=== PATIENT | male | born 1990 | race African-American/Black ===

== ENCOUNTER 2018-03-05 21:54 | Observation (INO) | payer SELFPAY ==
[2018-03-05] MEDS ORDERED: NA CHLORIDE 0.9% 1,000 ML ONE (22:52)
[2018-03-05] MEDS ORDERED: IBUPROFEN 400 MG TAB ONE (22:52)
[2018-03-05 22:59] LABS: Absolute Lymphocytes (CBC) 2.1 K/uL (0.7-4.9); Absolute Monocytes 1.4 K/uL (0.1-1.3); Absolute Neutrophil 28.3 K/uL (1.8-8.0); Basophils % 0.7 % (0-1.3); Hematocrit 42.8 % (39.6-49.0); Lymphocytes % 6.5 % (15.3-44.8); MCH 29.2 pg (27.0-35.0); MCV 88.7 fL (80-100); MPV 10.6 fL (7.6-11.3); Monocytes % 4.5 % (3.3-12.3); RBC Red Blood Cell Count 4.83 M/uL (4.33-5.43)
[2018-03-05 23:09] LABS: Bicarbonate 26 mEq/L (21-31); Glucose Level 126 mg/dL (65-120); Lipase 14 U/L (22-51); Potassium 3.3 mEq/L (3.6-5.0); Sodium Level 132 mEq/L (135-145)
[2018-03-05 23:16] LABS: ALT/SGPT 112 IU/L (10-60); AST/SGOT 51 IU/L (10-42); Albumin 4.3 g/dL (3.2-5.5); Alkaline Phosphatase 54 IU/L (42-121); Amylase Level 44 U/L (28-100); BUN Blood Urea Nitrogen 15 mg/dL (6-20); Bilirubin Direct 0.2 mg/dL (0-0.2); Bilirubin Total 1.4 mg/dL (0.3-1.2); Protein, Total 7.6 g/dL (6.0-8.3)
[2018-03-06] LABS: Urine Bacteria <20 /HPF (NONE SEEN); Urine Culture Reflex Order REFLEXED; Urine RBC <5 /HPF (NONE SEEN)
[2018-03-06 00:51] LABS: Blood Morphology Comment NOT SEEN (NOT SEEN); Platelet Estimate ADEQ
[2018-03-06] MEDS ORDERED: CEFTRIAXONE/SWI 1gm 1 GM/10 ML SYR ONE (02:32)
--- NOTE | 2018-03-06 02:50 | EDPHYS ---
Physician Documentation [facility] Name: Alex Ames Age: 27 yrs Sex: Male : 1990 Arrival Date: 03/05/2018 Time: 21:55 Bed 24 Private MD: ED Physician Francesco Galindo HPI: 03/05 22:25 This 27 yrs old Black Male presents to ER via Ambulatory with complaints of Urinary cp Problem - Blood. 22:25 The patient presents with urinary symptoms, urinary frequency, hematuria. cp 22:25 Onset: The symptoms/episode began/occurred yesterday. Associated signs and symptoms: cp Pertinent positives: fever, Pertinent negatives: constipation, diarrhea, vomiting. Severity of symptoms: in the emergency department the symptoms are unchanged. Historical: - Allergies: 22:17 No Known Allergies; bb - Home Meds: 22:17 None [Active]; bb - PMHx: 22:17 None; bb - PSHx: 22:17 None; bb - Immunization history:: Adult Immunizations unknown. - Social history:: Smoking status: Patient/guardian denies using tobacco, Patient uses alcohol, occasionally. Patient/guardian denies using street drugs. ROS: 22:30 Constitutional: Positive for fever, Negative for poor PO intake. cp 22:30 Eyes: Negative for injury, pain, redness, and discharge. cp 22:30 ENT: Negative for drainage from ear(s), ear pain, sore throat, difficulty swallowing, difficulty handling secretions. 22:30 Cardiovascular: Negative for chest pain, edema, palpitations. 22:30 Respiratory: Negative for cough, shortness of breath, wheezing. 22:30 Abdomen/GI: Positive for abdominal pain, of the suprapubic area, Negative for vomiting, diarrhea, constipation, black/tarry stool, rectal bleeding. 22:30 Back: Negative for pain at rest, pain with movement, radiated pain. 22:30 : Positive for urinary frequency, hematuria, Negative for flank pain, penile pain, testicular pain 22:30 Skin: Negative for cellulitis, rash. 22:30 Neuro: Negative for altered mental status, dizziness, headache, weakness. 22:30 All other systems are negative. Exam: 22:35 Constitutional: The patient appears in no acute distress, alert, awake, non-toxic, well cp developed, well nourished, febrile. 22:35 Head/Face: Normocephalic, atraumatic. Eyes: Pupils equal round and reactive to light, cp extra-ocular motions intact. Lids and lashes normal. Conjunctiva and sclera are non-icteric and not injected. Cornea within normal limits. Periorbital areas with no swelling, redness, or edema. ENT: Nares patent. No nasal discharge, no septal abnormalities noted. Tympanic membranes are normal and external auditory canals are clear. Oropharynx with no redness, swelling, or masses, exudates, or evidence of obstruction, uvula midline. Mucous membranes moist. Neck: Trachea midline, no thyromegaly or masses palpated, and no cervical lymphadenopathy. Supple, full range of motion without nuchal rigidity, or vertebral point tenderness. No Meningismus. Chest/axilla: Normal chest wall appearance and motion. Nontender with no deformity. No lesions are appreciated. 22:35 Cardiovascular: Rate: normal, Rhythm: regular, Pulses: Pulses are 2+ in right radial artery and left radial artery. Heart sounds: murmur, not appreciated, rub, not appreciated, gallop, not appreciated. 22:35 Respiratory: the patient does not display signs of respiratory distress, Respirations: normal, no use of accessory muscles, no retractions, no splinting, no tachypnea, labored breathing, is not present, Breath sounds: are clear throughout, no decreased breath sounds, no stridor, no wheezing. 22:35 Abdomen/GI: Inspection: abdomen appears normal, Bowel sounds: active, all quadrants, Palpation: soft, in all quadrants, mild abdominal tenderness, in the suprapubic area, right lower quadrant and left lower quadrant, rebound tenderness, is not appreciated, voluntary guarding, is not appreciated, involuntary guarding, is not appreciated. 22:35 Back: pain, is absent, ROM is normal, CVA tenderness, is absent. 22:35 Skin: cellulitis, is not appreciated, no rash present. 22:35 Neuro: Orientation: to person, place \T\ time. Mentation: is normal, Cerebellar function: is grossly normal, Motor: moves all fours, strength is normal, Sensation: no obvious gross deficits. Vital Signs: 22:17 BP 121 / 74; Pulse 97; Resp 18 S; Temp 102.6(O); Pulse Ox 98% on R/A; Weight 104.33 kg bb (R); Height 5 ft. 9 in. (175.26 cm) (R); Pain 0/10; 22:30 BP 110 / 73; Pulse 94; Resp 18; Pulse Ox 98% ; tl3 23:17 BP 119 / 63; Pulse 83; Resp 16; Pulse Ox 100% on R/A; tl3 03/06 00:06 BP 116 / 70; Pulse 86; Resp 18; Pulse Ox 100% ; tl3 00:40 BP 112 / 72; Pulse 80; Resp 16; Pulse Ox 100% ; tl3 00:56 BP 112 / 61; Pulse 90; Resp 18; Temp 98.8(O); Pulse Ox 98% on R/A; kb1 02:01 BP 110 / 71; Pulse 86; Resp 18; Pulse Ox 100% ; kb1 03:02 BP 111 / 63; Pulse 82; Resp 18; Pulse Ox 99% on R/A; kb1 03:51 BP 107 / 69; Pulse 89; Resp 18 S; Temp 98(O); Pulse Ox 100% on R/A; Pain 0/10; bb 03/05 22:17 Body Mass Index 33.96 (104.33 kg, 175.26 cm) bb MDM: 03/05 22:12 Patient medically screened. cp 03/06 02:25 Data reviewed: vital signs, nurses notes, lab test result(s), radiologic studies, CT cp scan, and as a result, I will admit patient. 03/05 22:23 Order name: Amylase, Serum; Complete Time: 23:20 cp 03/05 22:23 Order name: Basic Metabolic Panel; Complete Time: 23:20 cp 03/05 23:20 Interpretation: Normal except: NA 132; K 3.3; CL 99; GLUC 126. cp 03/05 22:23 Order name: CBC with Diff; Complete Time: 01:09 cp 03/06 01:33 Interpretation: Normal except: WBC 32.1; ROSI% 88.3; LYM% 6.5; MNA 1.4; NEUT A 28.3. cp 03/05 22:23 Order name: Creatinine for Radiology; Complete Time: 23:20 cp 03/05 22:23 Order name: Hepatic Function; Complete Time: 23:20 cp 03/05 23:21 Interpretation: Normal except: SGOT 51; SGPT 112; BILIT 1.4. cp 03/05 22:23 Order name: Lipase; Complete Time: 23:20 cp 03/05 23:22 Interpretation: LIP 14; Reviewed. cp 03/05 22:23 Order name: Urine Microscopic Only; Complete Time: 00:26 cp 03/06 00:27 Interpretation: Normal except: UWBC >50. cp 03/05 22:25 Order name: Influenza Screen (a \T\ B); Complete Time: 23:49 cp 03/05 23:49 Interpretation: Reviewed. cp 03/05 23:50 Order name: Manual Differential; Complete Time: 01:09 EDMS 03/06 01:09 Interpretation: Normal except: BANDS [F] 7; LYM 10. cp 03/06 00:02 Order name: Urine Culture EDMS 03/06 03:23 Order name: Comprehensive Metabolic Panel EDMS 03/06 03:23 Order name: Comprehensive Metabolic Panel EDMS 03/06 03:23 Order name: CBC with Automated Diff EDMS 03/06 03:23 Order name: CBC with Automated Diff EDMS 03/05 22:23 Order name: IV Saline Lock; Complete Time: 22:51 cp 03/05 22:23 Order name: Labs collected and sent; Complete Time: 22:51 cp 03/05 22:23 Order name: Urine Dipstick-Ancillary (obtain specimen); Complete Time: 22:51 cp 03/06 00:01 Order name: CT Abd/Pelvis - W/Contrast cp 03/06 03:23 Order name: Clear Liquid; Complete Time: 16:44 EDMS 03/06 03:23 Order name: CONS Pharmacy Consult; Complete Time: 16:44 EDMS 03/06 03:23 Order name: CBC with Automated Diff EDMS 03/06 03:23 Order name: Comprehensive Metabolic Panel EDMS Administered Medications: 03/05 22:58 Drug: NS 0.9% 1000 ml Route: IV; Rate: 1 bolus; Site: right antecubital; Delivery: tl3 Primary tubing; 03/06 00:07 Follow up: IV Status: Completed infusion; IV Intake: 1000ml tl3 03/05 22:58 Drug: Ibuprofen 800 mg Route: PO; tl3 03/06 00:07 Follow up: Response: No adverse reaction; Temperature is decreased tl3 02:38 Drug: Rocephin - (cefTRIAXone) 1 grams Route: IVPB; Infused Over: 30 mins; Site: right kb1 antecubital; 03:03 Follow up: IV Status: Completed infusion kb1 Disposition: 06:09 Co-signature as Attending Physician, Francesco Galindo MD I agree with the assessment and tw4 plan of care. Disposition: 03/06/18 02:50 Hospitalization ordered by Jonah Escamilla for Observation. Preliminary diagnosis are Urinary tract infection, site not specified, Bandemia. - Bed requested for Telemetry/MedSurg (observation). - Status is Observation. bb - Condition is Stable. - Problem is new. - Symptoms have improved. UTI on Admission? Yes Signatures: Dispatcher [employer] EDMS Roro De La Vega RN RN Eros Blackwell PA PA cp Haley Gaffney, RN Francesco Ruggiero MD MD tw4 Francine Low RN RN kb1 Varsha Kovacs RN RN tl3 Corrections: (The following items were deleted from the chart) 01:33 01:09 Normal except: WBC 32.1; ROSI% 88.3; LYM% 6.5. cp cp
--- NOTE | 2018-03-06 02:50 | ER ---
Nurse's Notes [facility] Name: Alex Ames Age: 27 yrs Sex: Male : 1990 Arrival Date: 03/05/2018 Time: 21:55 Bed 24 Private MD: Diagnosis: Urinary tract infection, site not specified;Bandemia Presentation: 03/05 22:15 Presenting complaint: Patient states: he had blood in his urine since last night, bb fever, chills, and urine has a foul order. Transition of care: patient was not received from another setting of care. Onset of symptoms was March 04, 2018. Care prior to arrival: Medication(s) given: Tylenol, 650 mg. 22:15 Method Of Arrival: Ambulatory bb 22:15 Acuity: YUNG 3 bb Historical: - Allergies: 22:17 No Known Allergies; bb - Home Meds: 22:17 None [Active]; bb - PMHx: 22:17 None; bb - PSHx: 22:17 None; bb - Immunization history:: Adult Immunizations unknown. - Social history:: Smoking status: Patient/guardian denies using tobacco, Patient uses alcohol, occasionally. Patient/guardian denies using street drugs. Screenin:30 Abuse screen: Denies threats or abuse. Nutritional screening: No deficits noted. tl3 Tuberculosis screening: No symptoms or risk factors identified. Fall Risk None identified. Assessment: 22:30 General: Appears in no apparent distress. well groomed, well developed, well nourished, tl3 Behavior is calm, cooperative, appropriate for age. Pain: Denies pain. Neuro: Level of Consciousness is awake, alert, obeys commands, Oriented to person, place, time, situation, Appropriate for age. Cardiovascular: Heart tones S1 S2 present Capillary refill < 3 seconds in bilateral fingers. Respiratory: Airway is patent Trachea midline Respiratory effort is even, unlabored, Respiratory pattern is regular, symmetrical, Breath sounds are clear bilaterally. GI: Abdomen is round. : Urine is blood tinged, Reports urgency, since yesterday blood in urine. EENT: No signs and/or symptoms were reported regarding the EENT system. Derm: No signs and/or symptoms reported regarding the dermatologic system. Musculoskeletal: No signs and/or symptoms reported regarding the musculoskeletal system. 23:17 Reassessment: Patient appears in no apparent distress at this time. No changes from tl3 previously documented assessment. Patient and/or family updated on plan of care and expected duration. Pain level reassessed. Patient is alert, oriented x 3, equal unlabored respirations, skin warm/dry/pink. 03/06 00:06 Reassessment: Patient appears in no apparent distress at this time. No changes from tl3 previously documented assessment. Patient and/or family updated on plan of care and expected duration. Pain level reassessed. Patient is alert, oriented x 3, equal unlabored respirations, skin warm/dry/pink. waiting to go to CT. 00:21 Reassessment: CT called to make aware that pt has finished contrast. tl3 00:40 Reassessment: Patient appears in no apparent distress at this time. No changes from tl3 previously documented assessment. Patient and/or family updated on plan of care and expected duration. Pain level reassessed. Patient is alert, oriented x 3, equal unlabored respirations, skin warm/dry/pink. 00:55 Reassessment: Patient appears in no apparent distress at this time. Patient and/or kb1 family updated on plan of care and expected duration. Pain level reassessed. Patient is alert, oriented x 3, equal unlabored respirations, skin warm/dry/pink. General: Appears in no apparent distress. Behavior is calm, cooperative. Pain: Denies pain. Cardiovascular: Patient's skin is warm and dry. Respiratory: Airway is patent. GI: Abdomen is round. : Reports blood in urine. 02:01 Reassessment: Patient appears in no apparent distress at this time. Patient and/or kb1 family updated on plan of care and expected duration. Pain level reassessed. Patient is alert, oriented x 3, equal unlabored respirations, skin warm/dry/pink. 03:01 Reassessment: Patient appears in no apparent distress at this time. Patient and/or kb1 family updated on plan of care and expected duration. Pain level reassessed. Patient is alert, oriented x 3, equal unlabored respirations, skin warm/dry/pink. Resting comfortably, no needs at this time. 03:50 Reassessment: Pt is A\T\O x 4, resp unlabored, denies pain at this time, IV site intact, bb report called to [facility] for bed 212. Vital Signs: 03/05 22:17 BP 121 / 74; Pulse 97; Resp 18 S; Temp 102.6(O); Pulse Ox 98% on R/A; Weight 104.33 kg bb (R); Height 5 ft. 9 in. (175.26 cm) (R); Pain 0/10; 22:30 BP 110 / 73; Pulse 94; Resp 18; Pulse Ox 98% ; tl3 23:17 BP 119 / 63; Pulse 83; Resp 16; Pulse Ox 100% on R/A; tl3 03/06 00:06 BP 116 / 70; Pulse 86; Resp 18; Pulse Ox 100% ; tl3 00:40 BP 112 / 72; Pulse 80; Resp 16; Pulse Ox 100% ; tl3 00:56 BP 112 / 61; Pulse 90; Resp 18; Temp 98.8(O); Pulse Ox 98% on R/A; kb1 02:01 BP 110 / 71; Pulse 86; Resp 18; Pulse Ox 100% ; kb1 03:02 BP 111 / 63; Pulse 82; Resp 18; Pulse Ox 99% on R/A; kb1 03:51 BP 107 / 69; Pulse 89; Resp 18 S; Temp 98(O); Pulse Ox 100% on R/A; Pain 0/10; bb 03/05 22:17 Body Mass Index 33.96 (104.33 kg, 175.26 cm) bb ED Course: 03/05 21:55 Patient arrived in ED. ds1 22:11 Varsha Kovacs, FRANKLIN is Primary Nurse. tl3 22:11 Eros Berrios PA is PHCP. cp 22:11 Francesco Galindo MD is Attending Physician. cp 22:16 Triage completed. bb 22:17 Arm band placed on Patient placed in an exam room, on a stretcher, on pulse oximetry. bb Family accompanied patient. 22:30 No apparent distress. Awaiting lab results. tl3 22:30 Patient has correct armband on for positive identification. Bed in low position. Call tl3 light in reach. Side rails up X 1. Adult w/ patient. Pulse ox on. NIBP on. Warm blanket given. 22:30 No provider procedures requiring assistance completed. Initial lab(s) drawn, by ky, tl3 sent to lab. Urine collected: clean catch specimen, blood tinged. Inserted saline lock: 22 gauge in right antecubital area, using aseptic technique. Blood collected. 22:30 Flu and/or RSV swab sent to lab. tl3 03/06 01:49 CT Abd/Pelvis - W/Contrast In Process Unspecified. EDMS 02:49 Jonah Escamilla MD is Hospitalizing Provider. cp 03:02 Report given to [facility]. kb1 03:05 Patient admitted, IV remains in place. bb 16:44 CBC with Automated Diff Sent. tl3 16:44 Comprehensive Metabolic Panel Sent. tl3 16:44 CBC with Automated Diff Sent. tl3 20:28 Comprehensive Metabolic Panel Sent. tl3 Administered Medications: 03/05 22:58 Drug: NS 0.9% 1000 ml Route: IV; Rate: 1 bolus; Site: right antecubital; Delivery: tl3 Primary tubing; 03/06 00:07 Follow up: IV Status: Completed infusion; IV Intake: 1000ml tl3 03/05 22:58 Drug: Ibuprofen 800 mg Route: PO; tl3 03/06 00:07 Follow up: Response: No adverse reaction; Temperature is decreased tl3 02:38 Drug: Rocephin - (cefTRIAXone) 1 grams Route: IVPB; Infused Over: 30 mins; Site: right kb1 antecubital; 03:03 Follow up: IV Status: Completed infusion kb1 Intake: 00:07 IV: 1000ml; Total: 1000ml. tl3 Outcome: 02:50 Decision to Hospitalize by Provider. cp 03:05 Instructed on the need for admit. bb 03:45 Admitted to Tele accompanied by tech, via stretcher, room 212, with chart, Report bb called to [facility] 03:45 Condition: stable 03:53 Patient left the ED. bb Signatures: Dispatcher [employer] [facility] Monika Portillo ds1 Roro De La Vega RN RN bb Eros Berrios PA PA cp Brown, Kristina RN RN kb1 Varsha Kovacs RN RN tl3
[2018-03-06] MEDS ORDERED: MEPERIDINE HCL 25 MG/0.5 ML IV PRN (03:20)
[2018-03-06] MEDS ORDERED: LORazepam 2 MG/ML VIAL IV PRN (03:20)
[2018-03-06] MEDS ORDERED: LORazepam 2 MG/ML VIAL IV ONE (03:20)
[2018-03-06] MEDS ORDERED: ONDANSETRON 4 MG/2 ML VIAL IV PRN (03:20)
[2018-03-06] MEDS ORDERED: MORPHINE 2 MG/ML SYR IV PRN (03:20)
[2018-03-06] MEDS ORDERED: METHYLPREDNISOLONE 125 MG INJ IV ONE (03:20)
[2018-03-06 04:15] VITALS: BMI 36.7
[2018-03-06 04:19] VITALS: O2SAT 100
[2018-03-06] MEDS: NA CHLORIDE 0.9% 1,000 ML IV SCH ×4 (04:21→22:33)
[2018-03-06 05:52] LABS: Absolute Lymphocytes (CBC) 1.9 K/uL (0.7-4.9); Absolute Neutrophil 24.1 K/uL (1.8-8.0); Basophils % 0.3 % (0-1.3); Hematocrit 40.9 % (39.6-49.0); Lymphocytes % 6.7 % (15.3-44.8); MCH 29.1 pg (27.0-35.0); MCV 88.8 fL (80-100); MPV 11.1 fL (7.6-11.3); Monocytes % 7.1 % (3.3-12.3)
[2018-03-06 06:02] LABS: ALT/SGPT 108 IU/L (10-60); AST/SGOT 52 IU/L (10-42); Albumin 3.8 g/dL (3.2-5.5); Alkaline Phosphatase 59 IU/L (42-121); BUN Blood Urea Nitrogen 15 mg/dL (6-20); Bicarbonate 30 mEq/L (21-31); Bilirubin Total 1.4 mg/dL (0.3-1.2); Glucose Level 121 mg/dL (65-120); Potassium 3.7 mEq/L (3.6-5.0); Protein, Total 7.1 g/dL (6.0-8.3); Sodium Level 136 mEq/L (135-145)
--- NOTE | 2018-03-06 07:13 | RAD REPORT ---
EXAM DESCRIPTION: CT - Abdomen Pelvis W Contrast - 03/06/2018 5:52 am CLINICAL HISTORY: Lower abdominal pain, hematuria, body aches and chills A preliminary written report was provided at the time of the study, and the report was reviewed prio r to final dictation. COMPARISON: None. TECHNIQUE: Biphasic, helical CT imaging of the abdomen and pelvis was performed following 100 ml non -ionic IV contrast. Oral contrast was given. All CT scans are performed using dose optimization technique as appropriate and may include automated exposure control or mA/KV adjustment according to patient size. FINDINGS: No suspicious findings in the lung bases. The liver, spleen, and pancreas show no suspicious findings. Liver attenuation indicates a mild diffu se fatty infiltration. No gallbladder or biliary tree abnormality. Symmetric renal function is seen with no hydronephrosis or suspicious renal mass. No pyelonephritis o r acute renal parenchymal process. Urinary bladder is mostly contracted. This accentuates wall thickn ess. This limits assessment of cystitis. No bladder calculus. No prostate enlargement or stranding in the adjacent fat. No dilated bowel loops or bowel wall thickening. No findings of appendicitis. No free air, free fluid or inflammatory stranding. No hernia, mass or bulky lymphadenopathy. No adrenal abnormality. No suspicious bony findings. IMPRESSION: Contrast enhanced CT abdomen and pelvis showing no acute finding. Mild fatty infiltration of the liver.
[2018-03-06] MEDS ORDERED: MORPHINE 4 MG/ML SYR IV PRN (07:31)
--- NOTE | 2018-03-06 07:36 | P.HP ---
Certification for Inpatient Patient admitted to: Observation With expected LOS: <2 Midnights Patient will require the following post-hospital care: None Practitioner: I am a practitioner with admitting privileges, knowledge of patient current condition, hospital course, and medical plan of care. Services: Services provided to patient in accordance with Admission requirements found in Title 42 Section 412.3 of the Code of Federal Regulations Patient History Date of Service: 03/06/18 Reason for admission: Urinary tract infection with leukocytosis History of Present Illness: Patient is a 27-year-old gentleman who presents to the hospital with blood in his urine. He has been noticing it for the last couple of days. He got concerned and came into the emergency room for further evaluation. In the emergency room patient had a workup done and was found have a significant leukocytosis. His CT of the abdomen and pelvis did not reveal any other pathology. Patient was given pain medication and is very sleepy. He is not able to give me much more history as he keeps falling asleep. Patient was admitted for further evaluation. Allergies No Known Allergies Allergy (Unverified 03/06/18 03:00) Home Medications: NK [No Home Meds] 03/06/18 - Past Medical/Surgical History Has patient received pneumonia vaccine in the past: No Diabetic: No -: none -: none - Family History Father Family History: Reviewed- Non-Contributory - Social History Smoking Status: Never smoker Alcohol use: Yes CD- Drugs: No Caffeine use: Yes Place of Residence: Home Review of Systems 10-point ROS is otherwise unremarkable Physical Examination - Vital Signs Temperature: 97.4 F Blood Pressure: 125/71 Pulse: 80 Respirations: 18 Pulse Ox (%): 96 - Physical Exam General: Alert, In no apparent distress, Oriented x3 HEENT: Atraumatic, PERRLA, Mucous membr. moist/pink, EOMI, Sclerae nonicteric Neck: Supple, 2+ carotid pulse no bruit, No LAD, Without JVD or thyroid abnormality Respiratory: Clear to auscultation bilaterally, Normal air movement Cardiovascular: Regular rate/rhythm, Normal S1 S2, No murmurs Gastrointestinal: Normal bowel sounds, Soft and benign, Non-distended, No rebound, No guarding, Tenderness Musculoskeletal: No clubbing, No swelling, No tenderness Integumentary: No rashes Neurological: Normal gait, Normal speech, Normal strength at 5/5 x4 extr, Normal tone, Sensation intact, Cranial nerves 3-12 intact, Normal affect Lymphatics: No axilla or inguinal lymphadenopathy - Studies Laboratory Data (last 24 hrs) 03/05/18 22:40: Creatinine 1.14 03/05/18 22:40: WBC 32.1 H*, Hgb 14.1, Hct 42.8, Plt Count 255 03/05/18 22:40: Sodium 132 L, Potassium 3.3 L, BUN 15, Creatinine 1.16, Glucose 126 H, Total Bilirubin 1.4 H, AST 51 H, ALT 112 H, Alkaline Phosphatase 54, Amylase 44, Lipase 14 L Microbiology Data (last 24 hrs): 03/05/18 22:40 Nasopharnyx Influenza Type A Antigen Screen - Final 03/05/18 22:40 Nasopharnyx Influenza Type B Antigen Screen - Final Assessment & Plan - Problems (Diagnosis) (1) Leukocytosis Current Visit: Yes Status: Acute (2) UTI (urinary tract infection) Current Visit: Yes Status: Acute (3) Hematuria Current Visit: Yes Status: Acute - Plan Plan: 1. Continue with IV hydration 2. Continue with IV antibiotics 3. Continue with pain control 4. Diet as tolerated 5. Urology consultation if symptoms continue to worsen 6. We will monitor CBC, BMP, LFTs and lipase along with electrolytes. 7. GI and DVT prophylaxis Discharge Plan: Home Plan to discharge in: 48 Hours - Advance Directives Does patient have a Living Will: No Does patient have a Durable POA for Healthcare: No - Code Status/Comfort Care Code Status Assessed: Yes Code Status: Full Code Critical Care: No Time Spent Managing PTS Care (In Minutes): 50
[2018-03-06] MEDS: CEFTRIAXONE/SWI 1gm 1 GM/10 ML SYR IV SCH (21:36)
[2018-03-06 22:23] LABS: Absolute Lymphocytes (CBC) 1.6 K/uL (0.7-4.9); Absolute Monocytes 1.5 K/uL (0.1-1.3); Absolute Neutrophil 23.1 K/uL (1.8-8.0); Basophils % 0.4 % (0-1.3); Hematocrit 41.3 % (39.6-49.0); Lymphocytes % 6.2 % (15.3-44.8); MCH 29.7 pg (27.0-35.0); MCV 89.9 fL (80-100); MPV 10.3 fL (7.6-11.3); Monocytes % 5.6 % (3.3-12.3); RBC Red Blood Cell Count 4.59 M/uL (4.33-5.43)
[2018-03-06] MEDS ORDERED: NA CHLORIDE 0.9% 1,000 ML IV ONE (22:29)
[2018-03-07] MEDS: NA CHLORIDE 0.9% 1,000 ML IV SCH (00:25)
[2018-03-07 05:10] LABS: Absolute Lymphocytes (CBC) 2.2 K/uL (0.7-4.9); Absolute Monocytes 1.3 K/uL (0.1-1.3); Absolute Neutrophil 19.9 K/uL (1.8-8.0); Basophils % 0.2 % (0-1.3); Hematocrit 39.7 % (39.6-49.0); Lymphocytes % 9.2 % (15.3-44.8); MCH 30.1 pg (27.0-35.0); MCV 89.7 fL (80-100); MPV 10.8 fL (7.6-11.3); Monocytes % 5.6 % (3.3-12.3); RBC Red Blood Cell Count 4.42 M/uL (4.33-5.43)
[2018-03-07 05:26] LABS: ALT/SGPT 93 IU/L (10-60); AST/SGOT 39 IU/L (10-42); Albumin 3.4 g/dL (3.2-5.5); Alkaline Phosphatase 73 IU/L (42-121); BUN Blood Urea Nitrogen 14 mg/dL (6-20); Bicarbonate 27 mEq/L (21-31); Bilirubin Total 0.5 mg/dL (0.3-1.2); Glucose Level 116 mg/dL (65-120); Potassium 4.4 mEq/L (3.6-5.0); Protein, Total 6.7 g/dL (6.0-8.3); Sodium Level 138 mEq/L (135-145)
[2018-03-07] MEDS ORDERED: CEFTRIAXONE 1 GM/NS 50 ML 1 GM/50 ML BAG IV SCH (05:58)
[2018-03-07] MEDS ORDERED: NA CHLORIDE 0.9% 1,000 ML IV SCH (06:00)
[2018-03-07] MEDS ORDERED: CEFTRIAXONE/SWI 1gm 1 GM/10 ML SYR ONE (06:21)
[2018-03-07] MEDS: CEFTRIAXONE/SWI 1gm 1 GM/10 ML SYR IV SCH (06:23)
[2018-03-07 06:53] VITALS: BP 136/67; TEMP 97.5
[2018-03-08] MEDS ORDERED: CEFTRIAXONE/SWI 1gm 1 GM/10 ML SYR IV SCH (06:00)
--- NOTE | 2018-03-08 16:56 | P.DS ---
Discharge Date: 03/07/18 Disposition: ROUTINE DISCHARGE Discharge Condition: GOOD Reason for Admission: Urinary tract infection with leukocytosis - Problems (1) Leukocytosis Onset Date: 03/07/18 Status: Acute (2) UTI (urinary tract infection) Onset Date: 03/07/18 Status: Acute (3) Hematuria Onset Date: 03/07/18 Status: Acute Brief History of Present Illness: Patient is a 27-year-old gentleman who presents to the hospital with blood in his urine. He has been noticing it for the last couple of days. He got concerned and came into the emergency room for further evaluation. In the emergency room patient had a workup done and was found have a significant leukocytosis. His CT of the abdomen and pelvis did not reveal any other pathology. Patient was given pain medication and is very sleepy. He is not able to give me much more history as he keeps falling asleep. Patient was admitted for further evaluation. Hospital Course: Patient did well during hospital stay. He wanted to go to his job training at 10 and he wanted to go home. Decision was made to discharge with outpt follow- up. Vital Signs/Physical Exam: Temp Pulse Resp BP Pulse Ox 97.5 F 76 18 136/67 98 03/07/18 04:00 03/07/18 04:00 03/07/18 04:00 03/07/18 04:00 03/07/18 04:00 General: Alert, In no apparent distress, Oriented x3 Laboratory Data at Discharge: WBC 23.5 K/uL (4.3-10.9) H* 03/07/18 04:21 Hgb 13.3 g/dL (13.6-17.9) L 03/07/18 04:21 Hct 39.7 % (39.6-49.0) 03/07/18 04:21 Plt Count 239 K/uL (152-406) 03/07/18 04:21 Sodium 138 mEq/L (135-145) 03/07/18 04:21 Potassium 4.4 mEq/L (3.6-5.0) 03/07/18 04:21 BUN 14 mg/dL (6-20) 03/07/18 04:21 Creatinine 0.87 mg/dL (0.61-1.24) 03/07/18 04:21 Glucose 116 mg/dL (65-120) 03/07/18 04:21 Total Bilirubin 0.5 mg/dL (0.3-1.2) 03/07/18 04:21 AST 39 IU/L (10-42) 03/07/18 04:21 ALT 93 IU/L (10-60) H 03/07/18 04:21 Alkaline Phosphatase 73 IU/L (42-121) 03/07/18 04:21 Amylase 44 U/L (28-100) 03/05/18 22:40 Lipase 14 U/L (22-51) L 03/05/18 22:40 Home Medications: Codeine/APAP [Tylenol W/Codeine #3 tab] 1 tab PO Q12HP PRN #10 tab 03/07/18 Smz./Tmp. [Bactrim Ds 800 MG/160 MG] 1 tab PO BID #14 tab 03/07/18 New Medications: Codeine/APAP [Tylenol W/Codeine #3 tab] 1 tab PO Q12HP PRN #10 tab PRN Reason: Pain Smz./Tmp. [Bactrim Ds 800 MG/160 MG] 1 tab PO BID #14 tab Patient Discharge Instructions: Okay to DC IV and DC home in am. Follow-up with PCP in 1-2 weeks. Call me at [phone] if any questions regarding hospital stay. Return to the ER is symptoms worsens. Follow-up with Urology in 1-2 weeks if persistent dysuria Diet: Regular Activity: Ad claudia Time spent managing pt's care (in minutes): 30
== END 2018-03-07 08:30 | disposition home or self-care (01) ==
LOC: ER 21:54 → ERHOLD 03-06 02:52 → 2ND 03-06 03:42 → INTOOBSV 03-06 20:15 → OBSVTOIN 03-06 20:15
PROVIDERS: ADMIT Hospitalist; ATTEND Family Medicine
DX: N39.0 Urinary tract infection, site not specified (principal); R31.9 Hematuria, unspecified
CPT/HCPCS: 36415; 74177; 80048; 80053; 80076; 81015; 82150; 83690; 85025; 87077; 87086; 87088; 87186; 87804; 96361; 96365; 99285; G0378; J0696; J2270; J2930; J7030; Q9967